=== PATIENT | male | born 1995 | race Caucasian/White ===

== ENCOUNTER 2018-05-24 15:18 | Emergency (ER) | payer BC ==
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
[2018-05-24] MEDS ORDERED: ISOVUE-370 76%-LOCM 1 ML ONE (16:28)
== END 2018-05-24 17:53 | disposition home or self-care (01) ==
LOC: ERS 15:18
DX: S39.012A Strain of muscle, fascia and tendon of lower back, initial encounter (principal); R16.0 Hepatomegaly, not elsewhere classified; V43.52XA Car driver injured in collision with other type car in traffic accident, initial encounter
CPT/HCPCS: 70450; 71045; 71260; 72125; 74177; 96360; G0390; Q9966